=== PATIENT | male | born 1970 | race Caucasian/White ===

== ENCOUNTER 2025-02-03 18:30 | Inpatient (IN) | payer OTHER ==
[~2025-02-03] VITALS: Ht 167.6 cm; Wt 79.3 kg
--- NOTE | 2025-02-03 19:16 | ED.PDOC ---
History of Present Illness HPI Cate 54 y/o M, with a history of pre-DM, presents for 1 day history of nonradiating, left-sided chest epigastric abdominal pain, nausea, nonproductive cough, and headache. Patient also reports 1 month history of intermittent, bilateral leg rash without itchiness or pain sensations. He rates his pain a 5/10 in severity; describes chest pain as sharp in quality, that worsens with agitation, exertion, deep breathing, and excessive cough; and describes abdominal pain as burning, that occurs, immediately, after eating. Patient endorses on prior history of symptoms in the past and no recent travel, stressors, strenuous activities, sick contact, or further significant cardiac or respiratory history. Denies any shortness of breath, congestion, fever, chills, vomiting, or further associated symptoms or modifiers. Chief Complaint: Chest Pain Time Seen by MD: 18:40 Primary Care Provider: ? Reviewed Notes: Nurses Notes, Medications, Allergies Allergies: Coded Allergies: NO KNOWN ALLERGIES (Unverified , 02/03/25) Information Source: Patient Mode of Arrival: Ambulatory Severity: Moderate Timing: Days Duration: Since onset Prehospital treatment: None Review of Systems: REVIEW OF SYSTEMS: No fever, no chills, or fatigue HEENT: No sore throat, no earache, no congestion, no neck pain. Cardiac: Chest pain. No palpitations. Lungs: Cough. No shortness of breath. GI: Nausea, epigastric abdominal pain, no vomiting, no diarrhea, no constipation. : No dysuria, frequency, or urgency. No hematuria. Musculoskeletal: No joint pain , no joint swelling, no extremity edema. Skin: No rash, no itching. Neuro: Headache, no dizziness, no weakness Vital Signs Vital Signs Date Time Temp Pulse Resp B/P (MAP) Pulse Ox O2 Delivery O2 Flow Rate FiO2 02/03/25 22:54 111 02/03/25 18:43 98.1 18 125/72 (89) 96 98.1 Physical Exam General: Awake, alert and oriented. No acute distress. Skin: Rash to upper and lower extremities, with some hyperpigmentation and erythematous papules. Otherwise, skin in warm, dry and intact. Appropriate color for ethnicity. HEENT: The head is normocephalic and atraumatic. Conjunctivae are clear without exudates or hemorrhage. Sclera is non-icteric. EOM are intact. No signs of nystagmus. Eyelids are normal in appearance without swelling or lesions. Oral mucosa is pink and moist Neck: The neck is supple with normal range of motion. No JVD. Cardiac: Heart rate and rhythm are normal. No murmurs, gallops, or rubs are auscultated. Respiratory: No signs of respiratory distress. Lung sounds are clear in all lobes bilaterally without rales, rhonchi, or wheezes. Abdominal: RUQ tenderness. Abdomen is otherwise soft, without distention. Bowel sounds are present and normoactive in all four quadrants. Extremities: Upper and lower extremities are atraumatic in appearance without deformity or edema. Neurological: The patient is awake, alert and oriented to person, place, and time with normal speech. Speech is clear. There is no facial asymmetry. Psychiatric: Appropriate mood and affect. Good judgement and insight. Past Medical History Past Medical History (Other): Pre-DM Surgical History: Denies all surgeries Family History Family History: Unknown Social History Smoker: Non-Smoker Alcohol: Sober Drugs: Denies Drug Use Lives In: Home Was a procedure done? Was a procedure done?: No EKG EKG #1: Pulse Rate (adult): 116 [place]: Normal Cardiac Rhythm: ST Block: RBBB Hypertrophy: None ST: Nonsp Comments No STEMI EKG #2: Pulse Rate (adult): 113 [place]: Normal Cardiac Rhythm: ST Block: None Hypertrophy: None ST: Normal EKG #3: Pulse Rate (adult): 111 [place]: Normal Cardiac Rhythm: ST Block: None Hypertrophy: None ST: Normal Differential Dx Considerations may include: Differential diagnoses considered include acute ischemic coronary syndrome, aortic dissection, cardiac tamponade, mediastinitis, pulmonary embolus, pneumothorax, tension pneumothorax, esophageal rupture, coronary artery vasospasm, myocarditis, pericarditis, pneumonia, pulmonary edema, esophageal tear, pancreatitis, aortic stenosis, dilated cardiomyopathy, hypertrophic cardiomyopathy, mitral valve prolapse, malignancy, pleuritis, pneumomediastinum, primary pulmonary hypertension, cholecystitis, esophageal spasm, esophagus, gastritis, GERD, peptic ulcer disease, costochondritis, fibromyalgia, rib fr acture, herpes zoster, radicular syndromes, thoracic outlet syndrome, somatization. X-Ray, Labs, Meds, VS Vital Signs Date Time Temp Pulse Resp B/P (MAP) Pulse Ox O2 Delivery O2 Flow Rate FiO2 5/12/25 22:54 111 02/03/25 21:31 111 02/03/25 20:12 113 02/03/25 20:00 113 02/03/25 19:16 116 02/03/25 18:43 98.1 116 18 125/72 (89) 96 98.1 Lab Test 02/03/25 18:54 02/03/25 18:37 Range/Units White Blood Count 10.0 4.4-10.8 10^3/uL Red Blood Count 4.97 4.5-5.90 10^6/uL Hemoglobin 15.1 13.5-17.5 g/dL Hematocrit 43.4 41.0-53.0 % Mean Corpuscular Volume 87.3 80.0-100.0 fL Mean Corpuscular Hemoglobin 30.3 28.0-32.0 pg Mean Corpuscular Hemoglobin Concent 34.7 32.0-36.0 g/dL Red Cell Distribution Width 13.7 11.8-14.3 % Platelet Count 289 140-450 10^3/uL Mean Platelet Volume 8.1 6.9-10.8 fL Neutrophils (%) (Auto) 81.3 H 37.0-80.0 % Lymphocytes (%) (Auto) 6.5 L 10.0-50.0 % Monocytes (%) (Auto) 11.8 0.0-12.0 % Eosinophils (%) (Auto) 0.1 0.0-7.0 % Basophils (%) (Auto) 0.3 0.0-2.0 % Neutrophils # (Auto) 8.1 1.6-8.6 10 ^3/uL Lymphocytes # (Auto) 0.7 0.4-5.4 10 ^3/uL Monocytes # (Auto) 1.2 0-1.3 10 ^3/uL Eosinophils # (Auto) 0 0-0.8 10 ^3/uL Basophils # (Auto) 0 0-0.2 10 ^3/uL Nucleated Red Blood Cells 0.0 % D-Dimer, Quantitative 0.52 H 0.0-0.49 mg/L FEU Sodium Level 128 L 136-145 mmol/L Potassium Level 4.4 3.5-5.1 mmol/L Chloride Level 94 L 98-107 mmol/L Carbon Dioxide Level 19 L 20-31 mmol/L Anion Gap 15 5-15 Blood Urea Nitrogen 24 H 9-23 mg/dL Creatinine 1.38 H 0.700-1.30 mg/dL Glomerular Filtration Rate Calc 60 >90 mL/min BUN/Creatinine Ratio 17.4 10.0-20.0 Serum Glucose 391 H 74-106 mg/dL Calcium Level 9.8 8.7-10.4 mg/dL Total Bilirubin 0.8 0.2-1.0 mg/dL Aspartate Amino Transferase (AST) 19 13-40 U/L Alanine Aminotransferase (ALT) 21 7-40 U/L Alkaline Phosphatase 132 H 46-116 U/L Troponin I High Sensitivity 6 </=54 ng/L B-Type Natriuretic Peptide 85.76 0-100 pg/mL Total Protein 7.8 5.7-8.2 g/dL Albumin 4.5 3.2-4.8 g/dL Urine Color Light-yellow Yellow Urine Clarity Clear Clear Urine pH 5.0 5.0-9.0 Urine Specific [place] 1.031 1.001-1.035 Urine Protein Trace H Negative Urine Ketones 3+ H Negative Urine Blood Negative Negative /uL Urine Nitrite Negative Negative Urine Bilirubin Negative Negative Urine Urobilinogen Normal Negative mg/dL Urine Leukocyte Esterase Negative Negative /uL Urine RBC None seen 0 - 3 /hpf Urine Microscopic WBC < 1 0-3 /HPF Urine Squamous Epithelial Cells None seen <5 /hpf Urine Bacteria None seen None Seen /hpf Urine Glucose 4+ H Normal mg/dL Current Medications Medications (Trade) Dose Ordered Sig/Ivelisse Route Start Time Stop Time Status Last Admin Aspirin 324 mg ONCE ONCE PO 02/03/25 18:45 02/03/25 18:46 DC 02/03/25 23:35 Acetaminophen (Tylenol Tablet Or Capsule) 1,000 mg ONCE ONCE PO 02/03/25 18:45 02/03/25 18:46 DC 02/03/25 23:35 Al Hydrox/Mg Hydrox/Simethicone (Maalox Plus) 30 ml ONCE ONCE PO 02/03/25 18:45 02/03/25 18:46 DC 02/03/25 23:35 Lidocaine HCl (Xylocaine 2% Viscous) 10 ml ONCE ONCE PO 02/03/25 18:45 02/03/25 18:46 DC 02/03/25 23:35 [place] [id number] Ph: [phone] DIAGNOSTIC IMAGING Diagnostic Imaging Report : [id number] Signed PATIENT: BELLA GARZA ACCT: [id number] UNIT: [id number] : 1970 LOC: ER ROOM / BED: / AGE / SEX: 54 / M ADM STATUS: REG ER SERVICE [id number] ORDERING PHYSICIAN: RENEE RICE MD PROCEDURE(s): CXR1 - CHEST XRAY 1 VIEW REASON: cp ORDER NUMBER(s): [id number], ACCESSION NUMBER(s): [id number] CHEST RADIOGRAPH Indication: cp Technique: Single frontal view of the chest was obtained Comparison: None FINDINGS: Lines and Tubes: None Lungs: No focal consolidation. Pleura: No effusion. No pneumothorax. Cardiomediastinal contours: Unremarkable Bones: No acute osseous abnormality. IMPRESSION: 1. No acute cardiopulmonary disease. ATED BY: ABIGAIL CASTAÑEDA Jr., DO DICTATED DATE/TIME: 02/03/251929 SIGNED BY: ABIGAIL CASTAÑEDA Jr., SIGNED DATE/TIME: 02/03/251929 CC: Images Reviewed?: Images reviewed and evaluated by me (Independent interpretation of chest x-ray: No acute disease) Time of 1ST Reevaluation: 19:10 Reevaluation 1ST: Unchanged Patient Education/Counseling: Other (Need for admission) Family Education/Counseling: No Family Present Departure 1 Departure Time of Disposition: 21:21 Impression: Primary Impression: Chest pain Additional Impressions: Sinus tachycardia Hyperglycemia Hyponatremia Disposition: ADMITTED INPATIENT Condition: Stable Comments 54-year-old male with chest pain. Patient persistently tachycardic observation. Patient is not hypoxic. Age adjusted D-dimer . Hyperglycemia likely secondary new onset diabetes. Mild hyponatremia for corrected sodium. Patient has possibly acute on chronic kidney injury versus CKD. IV fluids , insulin initiated emergency department. Patient admitted to hospitalist service for further treatment, evaluation and monitoring. Extensive evaluation was performed in attempt to identify or rule out: (See differential diagnosis section) The following tests were ordered, and results were reviewed by me and discussed with patient: (See diagnostic results section) The following test were independently interpreted by me: EKG, chest x-ray I reviewed and agreed with the following test results read by other providers: Chest x-ray I reviewed the following notes from the pt's past medical encounters: N/A Additional information was gathered from interviewing the following independent historians: N/A Discussion of management or test interpretation with external physician/other qualified health healthcare analyst: N/A Addressed an acute or chronic illness that poses a threat to life or bodily function: Hyperglycemia, acute kidney injury, sinus tachycardia Decision regarding hospitalization or escalation of hospital level of care: Risk and benefits of admission for further treatment of patient's condition was considered. Due to patient's current clinical condition, high risk of decline and poor outcome if discharged and need for further inpatient management and monitoring, patient will be admitted to the hospital. Drug therapy requiring intensive monitoring for toxicity: N/A Parenteral controlled substances: N/A Decision regarding elective major surgery with identified patient or procedure risk factors: N/A Decision regarding emergency major surgery: N/A Decision not to resuscitate or to de-escalate care because of poor prognosis: N/A Diagnosis or treatment significantly limited by social determinants of health: N/A Decision regarding hospitalization or escalation of hospital level of care: Risks and benefits of admission for further treatment of patient's condition was considered however due to patient's stable condition patient will be discharged to follow up closely or return to care for worsening of condition or inability to follow up. Critical Care Note Critical Care Time?: No Stability Stability form required: No Heart Score Heart Score: Heart Score Response (Comments) Value History Slightly Suspicious 0 EKG Normal 0 Age 45-64 1 Risk Factors 1 or 2 risk factors 1 Troponin Normal limit 0 Total 2 I personally scribed for RENEE RICE MD ([email or web address]) on 02/03/25 at 19:16. Electronically submitted by Andre Mckeon ([email or web address]). I personally scribed for RENEE RICE MD ([email or web address]) on 02/03/25 at 20:12. Electronically submitted by Andre Mckeon ([email or web address]). I personally scribed for RENEE RICE MD ([email or web address]) on 02/03/25 at 22:54. Electronically submitted by Andre Mckeon ([email or web address]). RENEE RICE MD February 03, 2025 19:16
[2025-02-03 19:32] LABS: Basophils # (auto) 0 10 ^3/uL (0-0.2); Basophils % (auto) 0.3 % (0.0-2.0); Eosinophils # (auto) 0 10 ^3/uL (0-0.8); Eosinophils % (auto) 0.1 % (0.0-7.0); Hematocrit 43.4 % (41.0-53.0); Hemoglobin 15.1 g/dL (13.5-17.5); Lymphocytes # (auto) 0.7 10 ^3/uL (0.4-5.4); Lymphocytes % (auto) 6.5 % (10.0-50.0); Mean Corpuscular Hemoglobin 30.3 pg (28.0-32.0); Mean Corpuscular Hgb Conc. 34.7 g/dL (32.0-36.0); Mean Corpuscular Volume 87.3 fL (80.0-100.0); Monocytes # (auto) 1.2 10 ^3/uL (0-1.3); Monocytes % (auto) 11.8 % (0.0-12.0); Neutrophils # (auto) 8.1 10 ^3/uL (1.6-8.6); Neutrophils % (auto) 81.3 % (37.0-80.0); Platelet Count (auto) 289 10^3/uL (140-450); Red Blood Cells 4.97 10^6/uL (4.5-5.90); Red Cell Distribution Width 13.7 % (11.8-14.3)
--- NOTE | 2025-02-03 19:33 | DVH ---
CHEST RADIOGRAPH Indication: cp Technique: Single frontal view of the chest was obtained Comparison: None FINDINGS: Lines and Tubes: None Lungs: No focal consolidation. Pleura: No effusion. No pneumothorax. Cardiomediastinal contours: Unremarkable Bones: No acute osseous abnormality. IMPRESSION: 1. No acute cardiopulmonary disease.
[2025-02-03 19:38] LABS: Urine Bacteria None Seen /hpf (None Seen)
[2025-02-03 19:56] LABS: Urine Blood Negative /uL (Negative); Urine Clarity Clear (Clear); Urine Color Light-Yellow (Yellow); Urine Protein, UAD TRACE (Negative); Urine Specific Gravity 1.031 (1.001-1.035); Urine Squamous Epithelial Cell None Seen /hpf (<5); Urine Urobilinogen Normal (Negative); Urine WBC < 1 /HPF (0-3)
[2025-02-03 19:57] LABS: Alanine Aminotransferase 21 U/L (7-40); Albumin 4.5 g/dL (3.2-4.8); Anion Gap 15 (5-15); Aspartate Aminotransferase 19 U/L (13-40); BUN/Creatinine Ratio 17.4 (10.0-20.0); Bilirubin, Total 0.8 mg/dL (0.2-1.0); Calcium 9.8 mg/dL (8.7-10.4); Potassium 4.4 mmol/L (3.5-5.1); Total Protein 7.8 g/dL (5.7-8.2)
[2025-02-03 19:58] LABS: Alkaline Phosphatase 132 U/L (46-116); Blood Urea Nitrogen 24 mg/dL (9-23); Carbon Dioxide 19 mmol/L (20-31); Chloride 94 mmol/L (98-107); Glucose 391 mg/dL (74-106); Sodium 128 mmol/L (136-145)
[2025-02-03] MEDS ORDERED: MORPHINE SULFATE INJ 2 MG/ml SYRG IV PRN (23:15)
[2025-02-03] MEDS ORDERED: ONDANSETRON HCL 4 MG/2 ML VIAL IV PRN (23:15)
[2025-02-03] MEDS ORDERED: NITROGLYCERIN 0.4 MG SL TAB SL PRN (23:15)
[2025-02-03] MEDS ORDERED: HYDROcodone-ACET 5/325MG TAB PO PRN (23:15)
[2025-02-03] MEDS: MAALOX PLUS or MAALOX 30 ML PO ONE (23:35)
[2025-02-03] MEDS: LIDOCAINE VISCOUS 2% 15ML UD PO ONE (23:35)
[2025-02-03] MEDS: ACETAMINOPHEN 500 MG TAB or CAP PO ONE (23:35)
[2025-02-03] MEDS: ASPirin 81 mg TAB PO ONE (23:35)
--- NOTE | 2025-02-04 01:09 | DVHHP2 ---
History of Present Illness Reason for Visit: chest pain History of Present Illness 54-year-old male with only history of pre-diabetes presents with 1 day of non- radiating, sharp, left-sided chest and epigastric abdominal pain, associated with nausea, headache, and nonproductive cough. Pain is 5/10 in intensity, worsens with exertion, pleuritic and eating. Denies fever, chills, congestion, SOB, palpitations, recent travel, or known cardiac or respiratory history. Surgical History: Denies all surgeries Family History Family History: both parents for cancer Social History Smoker: Non-Smoker Alcohol: Sober Drugs: Denies Drug Use Lives In: Home ROS: Constitutional: No fever or chills. HEENT: Headache, no sore throat or earache. Cardiac: Chest pain. No palpitations. Pulm: Cough, no SOB. GI: Nausea, burning abdominal pain after eating. No vomiting, no diarrhea, no constipation. : No dysuria or hematuria. Neuro: No weakness, dizziness, or visual changes. Review of Systems Allergies: Coded Allergies: NO KNOWN ALLERGIES (Unverified , 02/03/25) Medications Current Medications Medications Dose Ordered Sig/Ivelisse Route Start Time Stop Time Status Last Admin Dose Admin Sodium Chloride 1,000 ml @ 100 mls/hr Q10H IV 02/03/25 23:15 Acetaminophen 650 mg Q6HP PRN PO 02/03/25 23:15 Acetaminophen/ Hydrocodone Bitart 1 tab Q4HP PRN PO 02/03/25 23:15 Enoxaparin Sodium 40 mg DAILY SC 02/04/25 10:00 Nitroglycerin 0.4 mg Q5MINP PRN SL 02/03/25 23:15 Morphine Sulfate 2 mg Q30M PRN IV 02/03/25 23:15 Ondansetron HCl 4 mg Q4HPRN PRN IV 02/03/25 23:15 Exam Vital Signs Vital Signs Date Time Temp Pulse Resp B/P (MAP) Pulse Ox O2 Delivery O2 Flow Rate FiO2 02/03/25 22:54 111 02/03/25 18:43 98.1 18 125/72 (89) 96 98.1 Exam Physical Exam: Gen: Awake, alert, oriented, NAD HEENT: Normocephalic, atraumatic, conjunctiva clear, no scleral icterus Neck: Supple, no JVD CV: RRR, no murmurs, rubs, or gallops Resp: Clear to auscultation bilaterally Abd: Soft, non-tender, no organomegaly Ext: No edema, full strength Neuro: Alert, no focal deficits Labs/Xrays Labs Test 02/04/25 00:49 02/03/25 23:20 02/03/25 18:54 02/03/25 18:37 Range/Units Serum Osmolality 302 H 278-298 mOsm/kg Lactic Acid Level 1.1 0.4-2.0 mmol/L Lipase 34 12-53 U/L Beta-Hydroxybutyric Acid > 4.500 H < 0.4 mmol/L Thyroid Stimulating Hormone (TSH) 1.23 0.55-4.78 uIU/mL White Blood Count 10.0 4.4-10.8 10^3/uL Red Blood Count 4.97 4.5-5.90 10^6/uL Hemoglobin 15.1 13.5-17.5 g/dL Hematocrit 43.4 41.0-53.0 % Mean Corpuscular Volume 87.3 80.0-100.0 fL Mean Corpuscular Hemoglobin 30.3 28.0-32.0 pg Mean Corpuscular Hemoglobin Concent 34.7 32.0-36.0 g/dL Red Cell Distribution Width 13.7 11.8-14.3 % Platelet Count 289 140-450 10^3/uL Mean Platelet Volume 8.1 6.9-10.8 fL Neutrophils (%) (Auto) 81.3 H 37.0-80.0 % Lymphocytes (%) (Auto) 6.5 L 10.0-50.0 % Monocytes (%) (Auto) 11.8 0.0-12.0 % Eosinophils (%) (Auto) 0.1 0.0-7.0 % Basophils (%) (Auto) 0.3 0.0-2.0 % Neutrophils # (Auto) 8.1 1.6-8.6 10 ^3/uL Lymphocytes # (Auto) 0.7 0.4-5.4 10 ^3/uL Monocytes # (Auto) 1.2 0-1.3 10 ^3/uL Eosinophils # (Auto) 0 0-0.8 10 ^3/uL Basophils # (Auto) 0 0-0.2 10 ^3/uL Nucleated Red Blood Cells 0.0 % D-Dimer, Quantitative 0.52 H 0.0-0.49 mg/L FEU Sodium Level 128 L 136-145 mmol/L Potassium Level 4.4 3.5-5.1 mmol/L Chloride Level 94 L 98-107 mmol/L Carbon Dioxide Level 19 L 20-31 mmol/L Anion Gap 15 5-15 Blood Urea Nitrogen 24 H 9-23 mg/dL Creatinine 1.38 H 0.700-1.30 mg/dL Glomerular Filtration Rate Calc 60 >90 mL/min BUN/Creatinine Ratio 17.4 10.0-20.0 Serum Glucose 391 H 74-106 mg/dL Calcium Level 9.8 8.7-10.4 mg/dL Total Bilirubin 0.8 0.2-1.0 mg/dL Aspartate Amino Transferase (AST) 19 13-40 U/L Alanine Aminotransferase (ALT) 21 7-40 U/L Alkaline Phosphatase 132 H 46-116 U/L B-Type Natriuretic Peptide 85.76 0-100 pg/mL Total Protein 7.8 5.7-8.2 g/dL Albumin 4.5 3.2-4.8 g/dL Urine Color Light-yellow Yellow Urine Clarity Clear Clear Urine pH 5.0 5.0-9.0 Urine Specific [place] 1.031 1.001-1.035 Urine Protein Trace H Negative Urine Ketones 3+ H Negative Urine Blood Negative Negative /uL Urine Nitrite Negative Negative Urine Bilirubin Negative Negative Urine Urobilinogen Normal Negative mg/dL Urine Leukocyte Esterase Negative Negative /uL Urine RBC None seen 0 - 3 /hpf Urine Microscopic WBC < 1 0-3 /HPF Urine Squamous Epithelial Cells None seen <5 /hpf Urine Bacteria None seen None Seen /hpf Urine Glucose 4+ H Normal mg/dL Assessment/Plan Assessment/Plan #Chest pain #Rule out ACS: unstable angina? #Epigastric pain #GERD? #RBB #Uncontrolled diabetes: newly dx? #Pseudohyponatremia: correct 135 mEq #MERYL due to VMN (unknown baseline creatinine) #Bilateral perinephric fat stranding, right greater than left? Admit Medsurg Aspirin ISS NS 100 cc/h Maalox PO Protonix IV Pending A1C to start long actin insulin Enoxaparin SC Ceftriaxone IV Urine culture CT scan: Bilateral perinephric fat stranding, right greater than left. (without contrast due to MERYL) Case discussed with Dr Brock Full code Plan discussed with: Patient, Other (rn) My Orders Orders - SANJANA SKY RESIDENT Procedure Category Date Status Time Admit ADMIT 02/03/25 Transmitted 23:02 Code Status CODE 02/03/25 Transmitted 23:02 Vital Signs HOSSEIN 02/03/25 In Process 23:02 Review Orders With HOSSEIN 02/03/25 In Process Adm. 23:02 Consistent DIET 02/04/25 Transmitted Carb(Ccho)Diabetes Breakfast Sodium Chloride 0.9% PHA 02/03/25 In Process 23:15 Acetaminophen Tablet PHA 02/03/25 In Process (Tylenol Tablet) 23:15 Notify Md Of Changes HOSSEIN 02/03/25 In Process From Base 23:02 Advance Directive HOSSEIN 02/03/25 In Process 23:02 Patient Condition ORDERS 02/03/25 Transmitted 23:02 Allergies HOSSEIN 02/03/25 In Process 23:02 Hydrocodone-Acet PHA 02/03/25 In Process 5/325mg Tab ([place] 23:15 Enoxaparin Sodium PHA 02/04/25 In Process (Lovenox) 10:00 Nitroglycerin PHA 02/03/25 In Process Sublingual (Ntrostat 23:15 Morphine Sulfate PHA 02/03/25 In Process Injection 23:15 Oxygen By Nasal RT 02/03/25 Transmitted Cannula 23:02 Stat Ekg For Chest HOSSEIN 02/03/25 In Process Pain 23:02 Notify Md Of Changes HOSSEIN 02/03/25 In Process From Base 23:02 Childcare Worker For HOSSEIN 02/03/25 In Process 24 Hours 23:02 Emergency Dysrhythmia HOSSEIN 02/03/25 In Process Protocol 23:02 Rhythm Strips Once HOSSEIN 02/03/25 In Process Every Shift 23:02 Osmolality, Serum LAB 02/03/25 In Process 23:02 Osmolality Urine LAB 02/03/25 In Process 23:02 Echo 2d Mode Cardiac US 02/03/25 Logged DOP 23:02 Ondansetron Hcl PHA 02/03/25 In Process (Zofran) 23:15 Ct Ab Pel Wo Con-No CT 02/04/25 Logged Oral Or Iv 00:42 Date of Service: February 03, 2025 Billing Provider: LUBNA BROCK MD Common Visit Codes: [id number] INP/OBS CARE (HIGH) Secondary Visit Codes: [id number] CARE PLAN 30 MINUTES SANJANA SKY RESIDENT February 04, 2025 01:09
[2025-02-04] MEDS ORDERED: DEXTROSE (50%) 50ML SYRG IV PRN ×3 (01:15→10:30)
[2025-02-04] MEDS: SODIUM CHLORIDE 0.9% 1,000 ML IV SCH (03:40)
[2025-02-04] MEDS: SODIUM CHLORIDE 0.9% 500 ML IV ONE ×2 (03:41→18:37)
[2025-02-04] MEDS: ONDANSETRON HCL 4 MG/2 ML VIAL IV ONE (03:41)
[2025-02-04] MEDS: PANTOPRAZOLE 40 MG/10 ML VIAL INJ IV SCH (03:51)
[2025-02-04] MEDS: SODIUM CHLORIDE 0.9% 1,000 ML IV ONE (03:51)
[2025-02-04] MEDS ORDERED: MAALOX PLUS or MAALOX 30 ML GT PRN (04:00)
[2025-02-04 04:53] VITALS: O2SAT 98
--- NOTE | 2025-02-04 04:56 | DVH ---
Exam: CT CT AB PEL WO CON-NO ORAL OR IV History: severe epigastric pain Comparison Study: None Technique: Multidetector spiral CT of the abdomen and pelvis was performed from lung bases to pubic s ymphysis. Imaging was performed without intravenous contrast. Coronal and sagittal multiplanar reform ats were obtained from the axial data set by the technologist. Radiation Dose : 1. Abdomen/Pelvis: CTDIvol 10.13 mGy, DLP 581.67 mGy*cm. Findings: Evaluation of vasculature and solid organs is limited due to lack of intravenous contrast use. Lung Bases: Lung bases are clear. Visualized portions of the heart and pericardium are unremarkable. Liver: The liver is normal in size. No focal lesions. Gallbladder and Biliary Tree: The gallbladder is surgically absent. No intrahepatic or extrahepatic b iliary ductal dilatation. Spleen: Unremarkable Pancreas: The pancreas is grossly unremarkable. Adrenal Glands: Unremarkable Kidneys: No evidence of intrarenal calculi or hydronephrosis. Moderate right perinephric fat strandin g. Mild left perinephric fat stranding. GI tract: The stomach is grossly normal in appearance. No evidence of small bowel wall thickening or abnormal dilatation to suggest bowel obstruction. Colonic diverticulosis without acute diverticulitis . Normal appendix. Peritoneum/mesentery/retroperitoneum. No evidence of free intraperitoneal air. No ascites. No evidenc e of suspicious lymphadenopathy. Abdominal Wall: Unremarkable. Vasculature: The visualized abdominal aorta is normal in size and caliber. Evaluation of abdominal a nd pelvic vessels is limited due to lack of intravenous contrast. Urinary Bladder: Grossly unremarkable for degree of distention. Pelvic Organs: Unremarkable Musculoskeletal: No aggressive focal bony lesions, acute fractures or dislocation. Multilevel lumbar spondylosis. IMPRESSION: 1. Bilateral perinephric fat stranding, right greater than left. Evaluation is otherwise limited with out intravenous contrast. No intrarenal stones. Infection is not excluded. Correlation with urinalys is recommended. 2. Colonic diverticulosis without acute diverticulitis. 3. Cholecystectomy.
[2025-02-04] MEDS: cefTRIAXone 1GM/50ML D5W 50 ML IV SCH (06:03)
[2025-02-04 06:46] LABS: Basophils # (auto) 0 10 ^3/uL (0-0.2); Basophils % (auto) 0.4 % (0.0-2.0); Eosinophils # (auto) 0 10 ^3/uL (0-0.8); Hematocrit 44.2 % (41.0-53.0); Hemoglobin 15.4 g/dL (13.5-17.5); Lymphocytes # (auto) 0.4 10 ^3/uL (0.4-5.4); Lymphocytes % (auto) 5.2 % (10.0-50.0); Mean Corpuscular Hemoglobin 30.4 pg (28.0-32.0); Mean Corpuscular Hgb Conc. 34.8 g/dL (32.0-36.0); Mean Corpuscular Volume 87.3 fL (80.0-100.0); Monocytes # (auto) 0.8 10 ^3/uL (0-1.3); Monocytes % (auto) 9.7 % (0.0-12.0); Neutrophils # (auto) 7.1 10 ^3/uL (1.6-8.6); Neutrophils % (auto) 84.7 % (37.0-80.0); Platelet Count (auto) 305 10^3/uL (140-450); Red Blood Cells 5.06 10^6/uL (4.5-5.90); Red Cell Distribution Width 13.4 % (11.8-14.3); White Blood Cell 8.4 10^3/uL (4.4-10.8)
[2025-02-04] MEDS: InsuLIN REG 1unit/0.01ml Soln (100units/ml) SC SCH ×2 (07:00→13:10)
[2025-02-04] MEDS: ACCU-CHEK COMFORT CURVE STRIP VI SCH ×2 (07:00→12:50)
[2025-02-04] MEDS ORDERED: ACCU-CHEK COMFORT CURVE STRIP VI SCH (07:00)
[2025-02-04] MEDS ORDERED: InsuLIN REG 1unit/0.01ml Soln (100units/ml) SC SCH ×2 (07:00→22:00)
[2025-02-04 07:31] LABS: Alanine Aminotransferase 19 U/L (7-40); Albumin 4.6 g/dL (3.2-4.8); Anion Gap 19 (5-15); Aspartate Aminotransferase 14 U/L (13-40); BUN/Creatinine Ratio 17.9 (10.0-20.0); Calcium 10.1 mg/dL (8.7-10.4); Potassium 4.3 mmol/L (3.5-5.1); Total Protein 8.2 g/dL (5.7-8.2)
[2025-02-04 07:32] LABS: Bilirubin, Total 0.9 mg/dL (0.2-1.0)
[2025-02-04 07:33] LABS: Alkaline Phosphatase 132 U/L (46-116); Blood Urea Nitrogen 24 mg/dL (9-23); Carbon Dioxide 17 mmol/L (20-31); Chloride 97 mmol/L (98-107); Glucose 327 mg/dL (74-106); Sodium 133 mmol/L (136-145)
[2025-02-04 07:41] LABS: CRP High Sensitivity 19.42 mg/dL (<1.0)
--- NOTE | 2025-02-04 09:53 | ECG ---
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
[2025-02-04] MEDS ORDERED: PANTOPRAZOLE 40 MG/10 ML VIAL INJ IV SCH (10:00)
--- NOTE | 2025-02-04 10:00 | ECG ---
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
[2025-02-04 10:01] LABS: Base Excess -7.9 mmol/L (-2.0-3.0)
--- NOTE | 2025-02-04 10:02 | ECG ---
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
[2025-02-04] MEDS: ASPirin 81 mg TAB PO SCH (10:19)
[2025-02-04] MEDS: ENOXAPARIN SOD 40 MG/0.4 ML SYRINGE SC SCH (10:20)
[2025-02-04] MEDS: SOD CHL 0.45% 1,000 ML IV ONE (10:30)
[2025-02-04 12:18] LABS: Chloride 98 mmol/L (98-107); Potassium 4.2 mmol/L (3.5-5.1)
[2025-02-04 12:19] LABS: Anion Gap 13 (5-15); Calcium 9.7 mg/dL (8.7-10.4)
[2025-02-04 12:21] LABS: Carbon Dioxide 20 mmol/L (20-31); Sodium 131 mmol/L (136-145)
[2025-02-04 12:24] LABS: BUN/Creatinine Ratio 16.8 (10.0-20.0); Blood Urea Nitrogen 23 mg/dL (9-23); Glucose 267 mg/dL (74-106)
[2025-02-04] MEDS: INSULIN LANTUS (GLARGINE) 1 /0.01ml (100units/ml) SC ONE (13:08)
--- NOTE | 2025-02-04 19:16 | DVHPNRES ---
Progress Note Date Seen: February 04, 2025 Resident Creating Document: JHConorJKERON MirandaCLEMENCIAYAMIL RESIDENT Medical Necessity Reason Pt with a Central, PICC or Fol: No Subjective Review of Systems Patient is a 54-year-old male with a past medical history of being prediabetic presented with a chief complaint of epigastric abdominal pain. Patient reported that Monday he suddenly started to have epigastric abdominal pain, which was sharp in nature and intermittently got worse, associated with nausea but no vomiting, nonradiating, got worse with eating food. Patient denied any fever, chills, diarrhea, recent travel, shortness of breath or chest pain. Past medical history: Prediabetes Past surgical history: Cholecystectomy Social history: Patient lives with the family and denies smoking, alcohol, drug use Home medications: None Review of systems Patient is seen and examined at bedside Complaint of epigastric abdominal pain which is nonradiating and [id number] in intensity associated with nausea but no vomiting Denied chest pain, shortness of breath, extremity pain Objective vital signs Vital Sign Date Time Temp Pulse Resp B/P (MAP) Pulse Ox O2 Delivery O2 Flow Rate FiO2 02/04/25 15:46 97.9 123 16 132/75 (94) 96 97.9 02/04/25 09:02 Room Air* 0 21 Total Intake and Output 02/03/25 02/03/25 02/04/25 15:00 23:00 07:00 Intake Total 1050 ml Balance 1050 ml medications Current Medications Medications Dose Ordered Sig/Ivelisse Route Start Time Stop Time Status Last Admin Dose Admin Acetaminophen 650 mg Q6HP PRN PO 02/03/25 23:15 Acetaminophen/ Hydrocodone Bitart 1 tab Q4HP PRN PO 02/03/25 23:15 Enoxaparin Sodium 40 mg DAILY SC 02/04/25 10:00 02/04/25 10:20 40 MG Ondansetron HCl 4 mg Q4HPRN PRN IV 02/03/25 23:15 Pantoprazole Sodium 40 mg DAILY IV 02/04/25 01:30 02/04/25 10:19 40 MG Pantoprazole Sodium 40 mg DAILY IV 02/04/25 10:00 UNV Aspirin 81 mg DAILY PO 02/04/25 10:00 02/04/25 10:19 81 MG Ceftriaxone Sodium 50 ml @ 100 mls/hr DAILY@09 IV 02/04/25 06:00 02/04/25 06:03 100 MLS/HR Diagnostic Test (Pha) 1 strip IQ4HR 02/04/25 12:00 02/04/25 15:45 1 STRIP Insulin Human Regular IQ4HR SC 02/04/25 12:00 02/04/25 15:53 6 UNITS Dextrose 50 ml UD PRN IV 02/04/25 10:30 Examination Constitutional: Patient is alert and oriented to time, place and person and appear to be in mild abdominal distress Gen - no pallor, no icterus, no cyanosis, no clubbing, no LAD, no edema . Skin - Patients skin is warm and dry. HEENT - normocephalic, atraumatic, dry mucous membranes. Neck - full ROM, no LAD, no JVD Pulmonary - B/L equal breath sounds, no crackles , no wheezing, no stridor. cardiovascular - Regular S1,S2 heard. no murmurs heard. GI - soft abdomen with tenderness to palpation in the epigastrium . no hepatospleenomegaly. Bowel sounds normoactive Neurological - Bilateral upper extremity strength 5/5, bilateral lower extremity strength 5/5, no facial droop, normal speech, no tremor, no sensory deficiets. laboratory and microbiology Laboratory Tests 02/04/25 11:52 02/04/25 06:02 Test 02/04/25 11:52 Range/Units Serum Glucose 267 H 74-106 mg/dL Problem List/Assessment/Plan Problem List/Assessment/Plan Acute intractable abdominal pain Ruled out acute pancreatitis ? Acute gastritis ? GERD ACS ruled out - ECG showed sinus tachycardia with right bundle branch block, no ischemic changes - troponins WNL - Protonix and sucralfate Uncontrolled type 2 diabetes mellitus with hyperglycemia Starvation ketosis - HbA1c > 14% - labs showed elevated beta hydroxybutyrate, anion gap, low serum bicarb, hyperglycemia, urine ketones - ABG showed compensated metabolic acidosis with respiratory alkalosis - started on insulin Lantus 18 units daily and insulin sliding scale MERYL on CKD likely due to be VMN Pseudohyponatremia likely due to hypoglycemia - IV fluids given Colonic diverticulosis without diverticulitis H/o cholecystectomy - stable DVT prophylaxis: Enoxaparin Goals of care discussed with the patient for over 27 minutes. Full code Plan discussed with Dr. Abdoul Hummel discussed with: Patient My Orders My Orders Orders - MELISSA LYLE Procedure Category Date Status Time Abg W/ Co-Ox RT 02/04/25 Logged 09:32 Glucose Blood PHA 02/04/25 In Process (Accu-Chek Comfort 12:00 Insulin R (Human) PHA 02/04/25 In Process (Insulin R) 12:00 Dextrose 50% Syringe PHA 02/04/25 In Process 10:30 Transfer Orders XFER 02/04/25 Transmitted 10:16 Sodium Chloride 0.9% PHA 02/04/25 In Process 18:15 Date of Service: February 04, 2025 Billing Provider: RED GALVEZ MD Common Visit Codes: [id number] INP/OBS CARE(HIGH) MELISSA LYLE RESIDENT February 04, 2025 19:16 RED GALVEZ MD February 10, 2025 22:49
[2025-02-04 19:33] LABS: Anion Gap 10 (5-15); Carbon Dioxide 21 mmol/L (20-31); Potassium 3.9 mmol/L (3.5-5.1)
[2025-02-04 19:34] LABS: Calcium 9.2 mg/dL (8.7-10.4)
[2025-02-04 19:39] LABS: BUN/Creatinine Ratio 19.5 (10.0-20.0)
[2025-02-04 19:40] LABS: Blood Urea Nitrogen 24 mg/dL (9-23); Chloride 98 mmol/L (98-107); Glucose 156 mg/dL (74-106); Sodium 129 mmol/L (136-145)
[2025-02-05] VITALS (8 sets, daily range): BP systolic 110–132; BP diastolic 70–80; PULSE 105–122; RESP 15–18; TEMP 97.9–100; O2SAT 94–97
[2025-02-05] MEDS: SODIUM CHLORIDE 0.9% 1,000 ML IV ONE
[2025-02-05] MEDS: SUCRALFATE 1 GM/10 ML ORAL SUSP PO SCH (01:18)
[2025-02-05 06:29] LABS: Hematocrit 38.9 % (41.0-53.0); Hemoglobin 13.7 g/dL (13.5-17.5); Mean Corpuscular Hemoglobin 30.3 pg (28.0-32.0); Mean Corpuscular Hgb Conc. 35.1 g/dL (32.0-36.0); Mean Corpuscular Volume 86.3 fL (80.0-100.0); Platelet Count (auto) 245 10^3/uL (140-450); Red Blood Cells 4.51 10^6/uL (4.5-5.90); Red Cell Distribution Width 13.4 % (11.8-14.3); White Blood Cell 6.5 10^3/uL (4.4-10.8)
[2025-02-05 06:43] LABS: Anion Gap 14 (5-15); Chloride 98 mmol/L (98-107)
[2025-02-05 06:49] LABS: BUN/Creatinine Ratio 20.2 (10.0-20.0); Blood Urea Nitrogen 22 mg/dL (9-23)
[2025-02-05 06:51] LABS: Calcium 8.6 mg/dL (8.7-10.4); Carbon Dioxide 19 mmol/L (20-31); Glucose 180 mg/dL (74-106); Potassium 3.5 mmol/L (3.5-5.1); Sodium 131 mmol/L (136-145)
[2025-02-05 07:04] LABS: Basophils % (manual) 0 (0.0-2.0); Blast Cells 0; Eosinophils % (manual) 0 (0-7); Metamyelocytes % 0; Myelocytes % 0; Promyelocytes % 0; Reactive Lymphocytes 0
[2025-02-05 07:46] LABS: Band Neutrophils % (manual) 3; Lymphocytes % (manual) 11 (10.0-50.0); Monocytes % (manual) 3 (0-12); Platelet Estimate Adequate
[2025-02-05] MEDS ORDERED: DEXTROSE (50%) 50ML SYRG IV PRN (10:45)
[2025-02-05] MEDS: SODIUM CHLORIDE 0.9% 500 ML IV ONE (10:59)
[2025-02-05] MEDS: INSULIN LANTUS (GLARGINE) 1 /0.01ml (100units/ml) SC ONE (11:28)
[2025-02-05] MEDS: InsuLIN REG 1unit/0.01ml Soln (100units/ml) SC SCH ×2 (12:14→21:31)
[2025-02-05] MEDS: ACCU-CHEK COMFORT CURVE STRIP VI SCH (12:16)
[2025-02-05] MEDS: INSULIN LISPRO (HUMAN) 100 UNITS/ML ML SC SCH (13:15)
--- NOTE | 2025-02-05 17:04 | DVH ---
CHEST RADIOGRAPH Indication: suspected left pneumonia Technique: Single frontal view of the chest was obtained Comparison: XY CHEST XRAY 1 VIEW on DOS: 02/03/25 FINDINGS: Lines and Tubes: None Lungs: No focal consolidation. Pleura: No effusion. No pneumothorax. Cardiomediastinal contours: Unremarkable Bones: No acute osseous abnormality. IMPRESSION: 1. No acute cardiopulmonary disease.
[2025-02-05] MEDS: INSULIN LISPRO (HUMAN) 100 UNITS/ML ML SC ONE (18:32)
[2025-02-05] MEDS: DOXYCYCLINE 100 MG TAB/CAP PO SCH (22:00)
--- NOTE | 2025-02-05 23:11 | DVHPNRES ---
Progress Note Date Seen: February 05, 2025 Resident Creating Document: JHMELISSA CUI RESIDENT Medical Necessity Reason Pt with a Central, PICC or Fol: No Subjective Review of Systems Patient is seen and examined at bedside Reported abdominal pain has improved and does not feel nauseous anymore and is tolerating diet well Patient was noted to have sweating while examination and was having cough Denied dysuria Objective vital signs Vital Sign Date Time Temp Pulse Resp B/P (MAP) Pulse Ox O2 Delivery O2 Flow Rate FiO2 02/05/25 21:00 100.0 113 15 110/80 (90) 94 100.0 02/05/25 08:00 Room Air* 0 21 Total Intake and Output 02/04/25 02/04/25 02/05/25 15:00 23:00 07:00 Intake Total 0 ml Balance 0 ml medications Current Medications Medications Dose Ordered Sig/Ivelisse Route Start Time Stop Time Status Last Admin Dose Admin Acetaminophen 650 mg Q6HP PRN PO 02/03/25 23:15 Acetaminophen/ Hydrocodone Bitart 1 tab Q4HP PRN PO 02/03/25 23:15 Enoxaparin Sodium 40 mg DAILY SC 02/04/25 10:00 02/04/25 10:20 40 MG Ondansetron HCl 4 mg Q4HPRN PRN IV 02/03/25 23:15 Pantoprazole Sodium 40 mg DAILY IV 02/04/25 01:30 02/05/25 08:32 40 MG Pantoprazole Sodium 40 mg DAILY IV 02/04/25 10:00 UNV Aspirin 81 mg DAILY PO 02/04/25 10:00 02/05/25 08:32 81 MG Ceftriaxone Sodium 50 ml @ 100 mls/hr DAILY@09 IV 02/04/25 06:00 02/05/25 08:32 100 MLS/HR Sucralfate 1 gm BID@0600,2200 PO 02/04/25 22:00 02/05/25 21:30 1 GM Insulin Human Lispro 6 units AC SC 02/05/25 11:30 02/05/25 13:15 6 UNITS Diagnostic Test (Pha) 1 strip ACHS 02/05/25 11:30 02/05/25 21:30 1 STRIP Dextrose 50 ml UD PRN IV 02/05/25 10:45 Insulin Human Regular Use insulin lispro ... ACHS SC 02/05/25 22:00 02/05/25 21:31 1 UNITS Doxycycline Monohydrate 100 mg Q12HR PO 02/05/25 22:00 Examination Constitutional: Patient is alert and oriented to time, place and person and appear to be in mild abdominal distress Gen - no pallor, no icterus, no cyanosis, no clubbing, no LAD, no edema . Skin - Patients skin is warm and dry. HEENT - normocephalic, atraumatic, dry mucous membranes. Neck - full ROM, no LAD, no JVD Pulmonary - B/L equal breath sounds, no crackles , no wheezing, no stridor. cardiovascular - Regular S1,S2 heard. no murmurs heard. GI - soft abdomen with tenderness to palpation in the epigastrium . no hepatospleenomegaly. Bowel sounds normoactive Neurological - Bilateral upper extremity strength 5/5, bilateral lower extremity strength 5/5, no facial droop, normal speech, no tremor, no sensory deficiets. laboratory and microbiology Laboratory Tests 02/05/25 05:44 Test 02/05/25 05:44 Range/Units Serum Glucose 180 H 74-106 mg/dL Problem List/Assessment/Plan Problem List/Assessment/Plan Acute intractable abdominal pain Ruled out acute pancreatitis ? Acute gastritis ? GERD ACS ruled out - ECG showed sinus tachycardia with right bundle branch block, no ischemic changes - troponins WNL - Protonix and sucralfate Early Sepsis due to ?UTI ?Pneumonia - IV fluids - urine and blood culture - antibiotics cefepime and doxycycline Uncontrolled type 2 diabetes mellitus with hyperglycemia Starvation ketosis - HbA1c > 14% - labs showed elevated beta hydroxybutyrate, anion gap, low serum bicarb, hyperglycemia, urine ketones - ABG showed compensated metabolic acidosis with respiratory alkalosis - started on insulin Lantus 18 units daily - insulin lispro 6 units and sliding scale a.c. MERYL on CKD likely due to be VMN Pseudohyponatremia likely due to hypoglycemia - IV fluids given Colonic diverticulosis without diverticulitis H/o cholecystectomy - stable DVT prophylaxis: Enoxaparin Goals of care discussed with the patient for over 33 minutes. Full code Plan discussed with Dr. Schreiber Plan discussed with: Patient, Other (EBONY Machuca) My Orders My Orders Orders - MELISSA LYLE RESIDENT Procedure Category Date Status Time Insulin Lispro PHA 02/05/25 In Process (Human) (Humalog) 11:30 Glucose Blood PHA 02/05/25 In Process (Accu-Chek Comfort 11:30 Dextrose 50% Syringe PHA 02/05/25 In Process 10:45 * Dietary Consult CONS 02/05/25 Transmitted 15:59 Chest Xray 1 View XY 02/05/25 Resulted 16:11 Insulin R (Human) PHA 02/05/25 In Process (Insulin R) 22:00 Doxycycline Tablet PHA 02/05/25 In Process (Vibramycin Tablet) 22:00 Sodium Chloride 0.9% PHA 02/05/25 In Process 22:00 MELISSA LYLE RESIDENT February 05, 2025 23:11
[2025-02-06 01:00] VITALS: BP 112/72; PULSE 106; RESP 15; TEMP 98.3; O2SAT 94
[2025-02-06 05:00] VITALS: BP 110/68; PULSE 102; RESP 15; TEMP 98.4; O2SAT 93
[2025-02-06] MEDS: SODIUM CHLORIDE 0.9% 1,000 ML IV ONE (06:13)
[2025-02-06] MEDS: CEFEPIME 1GM/ 50ML 50 ML IV SCH (06:15)
[2025-02-06 06:50] LABS: Anion Gap 10 (5-15); Carbon Dioxide 24 mmol/L (20-31); Chloride 100 mmol/L (98-107)
[2025-02-06 06:57] LABS: BUN/Creatinine Ratio 15.6 (10.0-20.0); Blood Urea Nitrogen 15 mg/dL (9-23)
[2025-02-06 07:04] LABS: Basophils # (auto) 0.1 10 ^3/uL (0-0.2); Basophils % (auto) 0.8 % (0.0-2.0); Eosinophils # (auto) 0 10 ^3/uL (0-0.8); Eosinophils % (auto) 0.1 % (0.0-7.0); Hematocrit 38.2 % (41.0-53.0); Hemoglobin 13.2 g/dL (13.5-17.5); Lymphocytes # (auto) 0.7 10 ^3/uL (0.4-5.4); Lymphocytes % (auto) 10.5 % (10.0-50.0); Mean Corpuscular Hemoglobin 29.9 pg (28.0-32.0); Mean Corpuscular Hgb Conc. 34.7 g/dL (32.0-36.0); Mean Corpuscular Volume 86.3 fL (80.0-100.0); Monocytes # (auto) 0.8 10 ^3/uL (0-1.3); Monocytes % (auto) 11.7 % (0.0-12.0); Neutrophils # (auto) 5.4 10 ^3/uL (1.6-8.6); Neutrophils % (auto) 76.9 % (37.0-80.0); Platelet Count (auto) 234 10^3/uL (140-450); Red Blood Cells 4.43 10^6/uL (4.5-5.90); Red Cell Distribution Width 13.6 % (11.8-14.3)
[2025-02-06 07:05] LABS: Calcium 8.4 mg/dL (8.7-10.4); Glucose 157 mg/dL (74-106); Potassium 3.5 mmol/L (3.5-5.1); Sodium 134 mmol/L (136-145)
[2025-02-06 08:00] VITALS: PULSE 97
[2025-02-06 08:15] LABS: Urine Bacteria FEW /hpf (None Seen); Urine Blood Negative /uL (Negative); Urine Clarity Clear (Clear); Urine Color Yellow (Yellow); Urine Protein, UAD TRACE (Negative); Urine Squamous Epithelial Cell FEW /hpf (<5); Urine Urobilinogen 3 mg/dL (Negative); Urine WBC 3 /HPF (0-3); Urine pH 6.5 (5.0-9.0)
[2025-02-06 09:00] VITALS: BP 111/71; PULSE 98; RESP 18; TEMP 99; O2SAT 98
[2025-02-06] MEDS: ACETAMINOPHEN 325 MG TAB PO PRN (09:20)
[2025-02-06 13:00] VITALS: BP 122/75; PULSE 63; RESP 18; TEMP 97.9; O2SAT 96
[2025-02-06] MEDS ORDERED: LANC-347 XX (14:06)
[2025-02-06] MEDS ORDERED: DOX100T PO (14:06)
[2025-02-06] MEDS ORDERED: ISOP70MI2 EX (14:06)
[2025-02-06] MEDS ORDERED: SUCR1SUS26 PO (14:06)
[2025-02-06] MEDS ORDERED: GLUC-224 VI (14:06)
[2025-02-06] MEDS ORDERED: BLOO-169 XX (14:06)
[2025-02-06] MEDS ORDERED: LEVO500T91 PO (14:06)
[2025-02-06] MEDS ORDERED: INSLANTI SC (14:06)
[2025-02-06] MEDS ORDERED: INSU100I52 IJ (14:06)
[2025-02-06] MEDS ORDERED: INSLISPI SC (14:06)
[2025-02-06] MEDS: INSULIN LANTUS (GLARGINE) 1 /0.01ml (100units/ml) SC ONE (14:37)
--- NOTE | 2025-02-06 17:04 | DVHSR ---
APPROVED REPORT EXAM: Two-dimensional and M-mode echocardiogram with Doppler and color Doppler. Blood Pressure: 118/75 mmHg INDICATION Chest Pain RISK FACTORS Height: 5'6", Weight: 167 DIMENSIONS LVDd4.0 (3.8-5.7cm)LA (2D)3.3 (1.9-4.0cm)Aortic Root2.8 (2.0-3.7cm) LVDs2.7 (2.5-4.0cm)LA (MM) (1.9-4.0cm)Aortic Cusp Exc1.8 (1.5-2.0cm) EF (%) 63.0 (55-70%)Rt. Atrium3.8 (1.9-4.0cm)Asc. Aorta3.1 cm IVSd0.9 (0.7-1.1cm)RV (D)3.3 (1.8-2.4cm) PWd1.0 (0.7-1.1cm) Mitral Valve MitralMitral Stenosis E/A ratio0.02D MVAcm2 Aortic Valve Aortic ValveAortic Stenosis V11.22m/Isela Mean GR.3mmHg V21.16m/Isela Peak GR.5mmHg LVOT Diameter2.0 (1.8-2.4cm)Doppler AVA3.30cm2 Pulmonic Valve V20.80m/s Tricuspid Valve TR Velocity2.07m/s [id number] Conclusion Technically good study sinus rhythm. Normal chamber sizes. Valves are normal. EF is normal at 60% with normal RV function. Mild TR. No pericardial effusion masses or vegetations.
--- NOTE | 2025-02-06 19:28 | DVHDSRES ---
Discharge Summary Date of Admission Resident Creating Document: MELISSA LYLE RESIDENT February 03, 2025 at 23:02 Date of Discharge: February 06, 2025 Admitting Diagnosis #Chest pain #Rule out ACS: unstable angina? #Epigastric pain #GERD? #RBB #Uncontrolled diabetes: newly dx? #Pseudohyponatremia: correct 135 mEq #MERYL due to VMN (unknown baseline creatinine) #Bilateral perinephric fat stranding, right greater than left? Wounds: none Labs/Diagnostic Data: Laboratory Results Test 02/06/25 14:31 02/06/25 08:00 02/06/25 06:03 02/05/25 23:34 POC Glucose 214 mg/dl (70-106) Urine Color Yellow (Yellow) Urine Clarity Clear (Clear) Urine pH 6.5 (5.0-9.0) Urine Specific [place] 1.010 (1.001-1.035) Urine Protein Trace (Negative) Urine Ketones 1+ (Negative) Urine Blood Negative /uL (Negative) Urine Nitrite Negative (Negative) Urine Bilirubin Negative (Negative) Urine Urobilinogen 3 mg/dL (Negative) Urine Leukocyte Esterase Negative /uL (Negative) Urine RBC 1 /hpf (0 - 3) Urine Microscopic WBC 3 /HPF (0-3) Urine Squamous Epithelial Cells Few /hpf (<5) Urine Bacteria Few /hpf (None Seen) Urine Glucose 2+ mg/dL (Normal) White Blood Count 7.0 10^3/uL (4.4-10.8) Red Blood Count 4.43 10^6/uL (4.5-5.90) Hemoglobin 13.2 g/dL (13.5-17.5) Hematocrit 38.2 % (41.0-53.0) Mean Corpuscular Volume 86.3 fL (80.0-100.0) Mean Corpuscular Hemoglobin 29.9 pg (28.0-32.0) Mean Corpuscular Hemoglobin Concent 34.7 g/dL (32.0-36.0) Red Cell Distribution Width 13.6 % (11.8-14.3) Platelet Count 234 10^3/uL (140-450) Mean Platelet Volume 7.8 fL (6.9-10.8) Neutrophils (%) (Auto) 76.9 % (37.0-80.0) Lymphocytes (%) (Auto) 10.5 % (10.0-50.0) Monocytes (%) (Auto) 11.7 % (0.0-12.0) Eosinophils (%) (Auto) 0.1 % (0.0-7.0) Basophils (%) (Auto) 0.8 % (0.0-2.0) Neutrophils # (Auto) 5.4 10 ^3/uL (1.6-8.6) Lymphocytes # (Auto) 0.7 10 ^3/uL (0.4-5.4) Monocytes # (Auto) 0.8 10 ^3/uL (0-1.3) Eosinophils # (Auto) 0 10 ^3/uL (0-0.8) Basophils # (Auto) 0.1 10 ^3/uL (0-0.2) Nucleated Red Blood Cells 0.0 % Sodium Level 134 mmol/L (136-145) Potassium Level 3.5 mmol/L (3.5-5.1) Chloride Level 100 mmol/L (98-107) Carbon Dioxide Level 24 mmol/L (20-31) Anion Gap 10 (5-15) Blood Urea Nitrogen 15 mg/dL (9-23) Creatinine 0.96 mg/dL (0.700-1.30) Glomerular Filtration Rate Calc 93 mL/min (>90) BUN/Creatinine Ratio 15.6 (10.0-20.0) Serum Glucose 157 mg/dL (74-106) Calcium Level 8.4 mg/dL (8.7-10.4) Lactic Acid Level 1.1 mmol/L (0.4-2.0) Test 02/05/25 05:44 02/04/25 18:54 02/04/25 09:57 02/04/25 06:02 Differential Total Cells Counted 100.0 (100) Neutrophils % (Manual) 83 (37.0-80.0) Band Neutrophils % (Manual) 3 Lymphocytes % (Manual) 11 (10.0-50.0) Monocytes % (Manual) 3 (0-12) Eosinophils % (Manual) 0 (0-7) Basophils % (Manual) 0 (0.0-2.0) Metamyelocytes % (manual) 0 Myelocytes % (Manual) 0 Promyelocytes % (Manual) 0 Blast Cells % (Manual) 0 Reactive Lymphocytes 0 Platelet Estimate Adequate Hemoglobin A1c > 14.0 % A1C (<5.7) Blood Gas Specimen Type Arterial Blood Gas Sample Site Right radial Blood Gas Patient Temperature 37.0 Arterial Blood Date Drawn [id number] Arterial Blood pH 7.394 (7.350-7.450) Arterial Blood Partial Pressure CO2 25.0 mmHg (35.0-48.0) Arterial Blood Partial Pressure O2 79.9 mmHg (83.0-108.0) Arterial Blood HCO3 14.9 mmol/L (21.0-28.0) Arterial Blood Oxygen Saturation 96.4 % (94.0-98.0) Arterial Blood Base Excess -7.9 mmol/L (-2.0-3.0) Arterial Blood Oxyhemoglobin 95.7 % (94.0-98.0) Arterial Blood Carboxyhemoglobin 0.2 % (0.5-1.5) Arterial Blood Methemoglobin 0.5 % (0.0-1.5) Erasmo Test Yes Blood Gas Total Hemoglobin 15.20 g/dL (13.5-17.5) Blood Gas Modality Room air FiO2 % 21.0 Total Bilirubin 0.9 mg/dL (0.2-1.0) Aspartate Amino Transferase (AST) 14 U/L (13-40) Alanine Aminotransferase (ALT) 19 U/L (7-40) Alkaline Phosphatase 132 U/L (46-116) C-Reactive Protein High Sensitivity 19.42 mg/dL (<1.0) Total Protein 8.2 g/dL (5.7-8.2) Albumin 4.6 g/dL (3.2-4.8) Thyroid Stimulating Hormone (TSH) 1.11 uIU/mL (0.55-4.78) Test 02/04/25 00:49 02/03/25 23:20 02/03/25 18:54 Troponin I High Sensitivity 7 ng/L (</=54) Urine Osmolality 732 mOsm/kg Serum Osmolality 302 mOsm/kg (278-298) Lipase 34 U/L (12-53) Beta-Hydroxybutyric Acid > 4.500 mmol/L (< 0.4) D-Dimer, Quantitative 0.52 mg/L FEU (0.0-0.49) B-Type Natriuretic Peptide 85.76 pg/mL (0-100) Other Laboratory Tests 02/06/25 06:03 Brief Hx & Hospital Course: Patient is a 54-year-old male with a past medical history of being prediabetic presented with a chief complaint of epigastric abdominal pain. Patient reported that Monday afternoon he suddenly started to have epigastric abdominal pain, which was sharp in nature and intermittently got worse, associated with nausea but no vomiting, nonradiating, got worse with eating food. Patient denied any fever, chills, diarrhea, recent travel, shortness of breath or chest pain. Past medical history: Prediabetes Past surgical history: Cholecystectomy Social history: Patient lives with the family and denies smoking, alcohol, drug use Home medications: None Hospital course Patient was admitted to the hospital with a chief complaint of epigastric abdominal pain and lower chest pain. ECG showed sinus tachycardia with a right bundle branch block and no ST or T-wave changes were seen, troponins were within normal limits and ACS was ruled out. CT abdomen pelvis was done which showed bilateral perinephric fat stranding right greater than the left, colonic diverticulosis without diverticulitis. Urinalysis did not show any evidence of urinary tract infection and patient did not complaint of CVA tenderness. While in the hospital patient was seen to have elevated blood sugars, anion gap was increased and low serum bicarb with a history of patient not been able to eat for 2 days because of the intractable nausea and abdominal pain, patient likely was not starvation ketosis. HbA1c level were greater than 14% and the patient was started on insulin with basal and bolus regimen. Blood sugars were controlled. The patient was fairly dehydrated and was given IV fluid rehydration. Echocardiogram showed LVEF 60% with normal RV function, mild TR. Patient had cough, fever with the suspicion of pneumonia he was started on IV antibiotics. Has a patient had a low PSI, and no fevers, we discharged him home with oral antibiotics. Patient discharged home in stable condition. Discharge plan Medications: Insulin Lantus 18 units HS, insulin lispro 6 units t.i.d. a.c., insulin sliding scale with lispro, levofloxacin 500 mg for 5 days and doxycycline 100 mg b.i.d. for 5 days Follow up in the discharge clinic in 1 week Consults/Reason for consult none Operations or Procedures none Condition at Discharge: Good Final Diagnosis/Problems List Acute intractable abdominal pain Ruled out acute pancreatitis ? Acute gastritis ? GERD ACS ruled out Early Sepsis due to ?UTI ?Pneumonia Uncontrolled type 2 diabetes mellitus with hyperglycemia Starvation ketosis MERYL on CKD likely due to be VMN Pseudohyponatremia likely due to hypoglycemia Colonic diverticulosis without diverticulitis H/o cholecystectomy Discharge Disposition: Home Discharge Instruct/Medications Diet: Consistent carbohydrate Diet comment: avoid sodas, juices, sugar in drinks and coffee, white flour products like bread and tortillas Activity: No Restrictions, As Tolerated Follow Up/Referral: Follow up in the d/c clinic within one week on monday02/11/2025 Medications: as per EMR Discharge Statement: "Patient was advised to return to the ER or call 911 if any headaches, dizziness, shortness of breath, chest pain, abdominal pain, bleeding, fevers, or worsening of medical condition. Patient was counseled about treatment plan, medications, possible side effects, patientverbalized understanding. All questions were answered to the best of my ability. This discharge took greater then 30 minutes in planning, reviewing documentation, counseling the patient, and discussing with other team members." ASSESSMENT ASSESSMENT Assessment Acute intractable abdominal pain Ruled out acute pancreatitis ? Acute gastritis ? GERD ACS ruled out Early Sepsis due to ?UTI ?Pneumonia Uncontrolled type 2 diabetes mellitus with hyperglycemia Starvation ketosis MERYL on CKD likely due to be VMN Pseudohyponatremia likely due to hypoglycemia Colonic diverticulosis without diverticulitis H/o cholecystectomy MELISSA LYLE RESIDENT February 06, 2025 19:28
== END 2025-02-06 15:36 | disposition home or self-care (01) | DRG 871 ==
LOC: ER 18:36 → OVERFLOW 23:02 → WEST WING 02-04 23:56 → TELE-WESTW 02-05 05:29
PROVIDERS: ADMIT Student in an Organized Health Care Education/Training Program; ATTEND Student in an Organized Health Care Education/Training Program
DX: A41.9 Sepsis, unspecified organism (principal); J15.69 Pneumonia due to other Gram-negative bacteria; N17.0 Acute kidney failure with tubular necrosis; J15.9 Unspecified bacterial pneumonia; I24.9 Acute ischemic heart disease, unspecified; N39.0 Urinary tract infection, site not specified; K29.00 Acute gastritis without bleeding; K21.9 Gastro-esophageal reflux disease without esophagitis; E11.649 Type 2 diabetes mellitus with hypoglycemia without coma; E11.65 Type 2 diabetes mellitus with hyperglycemia; T73.0XXA Starvation, initial encounter; X58.XXXA Exposure to other specified factors, initial encounter; N18.9 Chronic kidney disease, unspecified; K57.30 Diverticulosis of large intestine without perforation or abscess without bleeding; I45.10 Unspecified right bundle-branch block; E11.22 Type 2 diabetes mellitus with diabetic chronic kidney disease; Z90.49 Acquired absence of other specified parts of digestive tract; Z79.899 Other long term (current) drug therapy
CPT/HCPCS: 36415; 36600; 71045; 74176; 80048; 80053; 81001; 82010; 82805; 82962; 83036; 83605; 83690; 83880; 83930; 83935; 84443; 84484; 85007; 85025; 85027; 85379; 86141; 87040; 87077; 87086; 87186; 93005; 93306; G0378; J1815; J2470